=== PATIENT | male | born 1980 | race Caucasian/White ===

== ENCOUNTER 2024-11-30 13:21 | Emergency (ER) | payer SELFPAY ==
[2024-11-30 13:37] VITALS: BP 149/91; PULSE 82; RESP 20; TEMP 36.8; O2SAT 98; BMI 31.5
[2024-11-30 13:45] VITALS: BP 143/86; PULSE 71; O2SAT 97
--- NOTE | 2024-11-30 13:47 | XR_ITS ---
PROCEDURE INFORMATION: Exam: XR Right Knee Exam date and time: 11/30/2024 2:10 PM Age: 43 years old Clinical indication: Pain; Knee; Right; Additional info: Acute right knee pain TECHNIQUE: Imaging protocol: Radiologic exam of the right knee. Views: 3 views. COMPARISON: No relevant prior studies available. FINDINGS: Bones/joints: There is no evidence of acute fracture.There is no evidence of malalignment or dislocation. Soft tissues: Normal. IMPRESSION: There is no evidence of acute fracture.There is no evidence of malalignment or dislocation.
--- NOTE | 2024-11-30 13:55 | ECG_ITS ---
APPROVED REPORT Exam: Resting ECG HR:80 bpm ECG Measurements Heart Rate 80 AXES DC 170 P 71 QRSd 101 QRS 49 QT 339 T 69 QTc 375 Conclusion Normal sinus rhythm, normal axis, normal intervals, no noted ST elevation Electronically signed by : Darshan Johnson, 11/30/2024 14:14:21
[2024-11-30] MEDS: NAPROXEN 500MG TABLET 500 MG PO (14:16)
[2024-11-30 14:30] VITALS: BP 141/91; PULSE 65; O2SAT 97
--- NOTE | 2024-11-30 15:21 | [facility].EDGENADL ---
Discharge Plan Disposition Patient Disposition: Home, Self-Care Condition: Good Referrals Follow up/Referrals: Provider,Referral, MD [Primary Care Provider] - See instructions Activity Restrictions/Add. Instructions Additional Instructions/Restrictions: As discussed please wear compression on knee, keep elevated when able. Scheduled ibuprofen for the next 3 to 5 days. Follow-up with primary care physician. Return to ED if symptoms worsen. Clinical Impressions Clinical Impression: Acute pain of right knee, Bursitis, prepatellar, right Print Language Print Language: Latvian Discharge ED Provider: Darshan Johnson General Adult HPI General Chief complaint: Extremity Injury, Lower Stated complaint: Pain/heat/swelling R knee, cough, congestion, Time Seen by Provider: 11/30/24 13:41 Mode of Arrival: Ambulatory Source of Information: Patient Description of Symptoms (Recalled from ER Triage Doc. 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 Has had some swelling. No fever. Also complaining of cough, occasional chest pains which he indicates are in costochondral region, sinus drainage. Not having chest pain currently. denies significant past medical history. No significant injury reported to knee, no falls. Does not use kneepads whenever working. Please note that above description of symptoms, in this electronic medical record under categorization of recalled from ER triage doctor by RN are reflective of an initial nursing assessment, however, is not reflective of my full history and physical exam that was personally taken and clarified. Consequentially, this preceding description of symptoms, which may include the patient's categorized chief complaint in the EMR, do not reflect my personal clinical impression, and the ultimate description of history of present illness and patient stated complaints should be deferred to this section of the note. Unless stated otherwise or congruent with this section of the note, additional signs, symptoms, or incongruence should be interpreted as inaccurate with my clinical impression. Related Data Allergies Allergy/AdvReac Type Severity Reaction Status Date / Time No Known Allergies Allergy Verified 11/30/24 14:16 [facility] Disclaimer: The information contained in this section may have been updated after the patient was seen, as this information can be updated by other users. Social History Smoking Status: Current every day smoker alcohol intake: former current occupational status: other Travel in the last 8 weeks?: None ROS Obtained: Yes Systems reviewed as appropriate & no additional complaints except as documented Physical Exam General General appearance: alert and in no apparent distress Head Head exam: atraumatic and normocephalic Eye Eye exam: Present normal appearance and EOMI ENT ENT exam: Present normal exam Neck Neck exam: Present normal inspection Chest Chest inspection: Present normal inspection, symmetric chest wall rise and tenderness (Tender to palpation of costochondral junction) Respiratory Respiratory exam: Present normal lung sounds bilaterally; Absent respiratory distress, wheezes or stridor Cardiovascular Cardiovascular exam: Present regular rate, normal rhythm and normal heart sounds Abdominal Exam Abdominal exam: Present soft and normal bowel sounds; Absent distention or tenderness exam: Present deferred Extremities Exam Extremities exam: Present full ROM, tenderness and normal capillary refill; Absent normal inspection (Swelling of right anterior lower knee, no noted erythema, normal temperature to touch, tender to palpation of knee anteriorly, no noted deformity, no noted abrasion or laceration. Remainder of extremities without significant findings, range of motion normal, patient is able to bend and extend right) Back Exam Back exam: Present normal inspection Neurological Exam Neurological exam: Present alert and oriented X3 Psychiatric Psychiatric exam: Present normal affect and normal mood Skin Skin exam: Present warm, dry, intact and normal color; Absent rash or erythema Medical Decision Making Medical Records Medical records reviewed: Yes I reviewed the patient's medical records. Screening: Per USPSTF and CDC recommendations, given the prevalence of disease in our region, it is our hospital?s policy to screen for HIV and viral Hepatitis for all patients aged 18 and over and those with ongoing risk factors. Kenneth Inquiry Pt receiving controlled substance: No Vital Signs: 11/30/24 13:37 11/30/24 13:45 11/30/24 14:30 Temperature 98.2 F Temperature Source Oral Pulse Rate 71 65 Pulse Rate [Left Radial] 82 Respiratory Rate 20 Blood Pressure 143/86 H 141/91 H Blood Pressure [Right Arm] 149/91 H Blood Pressure Mean [Right Arm] 110 02 Sat by Pulse Oximetry 98 97 97 Oxygen Delivery Method Room Air Room Air Room Air Orders (Tests/Meds): ED MEDICATIONS Discontinued Medications Generic Name Dose Route Start Last Admin Trade Name Freq PRN Reason Stop Dose Admin Naproxen 500 mg 11/30/24 13:47 11/30/24 14:16 Naproxen 500mg Tablet PO 11/30/24 13:48 500 mg ONCE ONE Administration ORDERS Category Date Time Status Knee XR right 3 views [XR knee RT 3V] Stat Exams 11/30/24 13:47 Completed EKG Request [ECG Request] Stat Y 11/30/24 13:47 Ordered ECG Data Tracing #1: Normal sinus rhythm, normal axis, normal intervals, no noted ST elevation Medical Decision Narrative: Patient with history and exam per above presenting for evaluation of right knee pain, physical and neurological exam as above, mild tenderness to palpation of costochondral junctions,, tenderness to palpation of right anterior knee with some swelling and prepatellar region. Diagnoses considered include prepatellar bursitis, fracture, dislocation, joint effusion, costochondritis, upper respiratory virus, among others ED workup and treatment included: As above Imaging was independently visualized and interpreted by me, significant for no acute fracture or dislocation of right knee, no significant soft tissue abnormality Please refer to radiology report for full details. My clinical impression at this time is most consistent with prepatellar bursitis, costochondritis, viral syndrome. Patient was given naproxen while in the ED. Placed in [place] bandage for right knee pain. Advised to trial ibuprofen scheduled over the next 3 to 5 days. Keep knee elevated when able. Advised patient to use kneepads due to repetitive kneeling motion likely causing prepatellar bursitis. Given strict instructions to return to ED if symptoms worsen otherwise patient is follow-up with his primary care provider. Patient agreeable with this plan. Discharged home with hemodynamically stable vitals I discussed my clinical impression with patient and answered all questions. At this time, the evidence for any other entities in the differential is insufficient to warrant any further testing or ED observation. This was explained to the patient. The patient was advised that persistent or worsening symptoms require further evaluation. Critical Care Critical Care Time Critical Care Time: No
[2024-11-30 16:15] VITALS: BP 136/78; PULSE 80; RESP 18; TEMP 36.6; O2SAT 97
== END 2024-11-30 16:16 | disposition home or self-care (01) ==
PROVIDERS: Emergency Provider Student in an Organized Health Care Education/Training Program
DX: R07.89 Other chest pain (principal); M70.41 Prepatellar bursitis, right knee; M25.561 Pain in right knee; M94.0 Chondrocostal junction syndrome [Tietze]; R09.81 Nasal congestion; R05.9 Cough, unspecified; B34.9 Viral infection, unspecified; Y93.H3 Activity, building and construction
CPT/HCPCS: 73562; 93005; 99284